=== PATIENT | male | born 1985 | race Caucasian/White ===

== ENCOUNTER 2017-02-22 15:45 | Emergency (ER) | payer OTHER ==
[~2017-02-22] VITALS: Ht 175.3 cm; Wt 86.6 kg
[2017-02-22 15:51] VITALS: TEMP 36.8; Ht 175.3 cm; Wt 86.6 kg
[2017-02-22] MEDS ORDERED: ACETAMINOPHEN 500 MG TAB PO STA (16:32)
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
[2017-02-22] MEDS ORDERED: DIPHTHERIA/TETANUS/PERTUSSIS 0.5 ML SYR/VIAL IM. ONE (16:45)
[2017-02-22] MEDS ORDERED: ASPI1TAB4 PO (17:04)
[2017-02-22] MEDS ORDERED: ASPI-390 PO (17:04)
--- NOTE | 2017-02-22 17:32 | DIAGNOSTIC IMAGING REPORT ---
CT SCAN OF THE BRAIN WITHOUT IV CONTRAST CLINICAL HISTORY: Fall. Head injury. COMPARISON STUDY: CT of the brain dated 04/15/2009. TECHNIQUE: Unenhanced axial CT scan of the brain is performed from the vertex to the skull base. A dose lowering technique was utilized adhering to the principles of ALARA. CT DOSE: 833.35 mGy.cm FINDINGS: Brain parenchyma: The brain parenchyma is normal in appearance. There is no hemorrhage, mass effect, or evidence of acute territorial ischemia by CT criteria. Diaz-white matter is preserved. No extra-axial fluid collection is seen. Ventricles, sulci, cisterns: Normal in configuration. Intracranial vasculature: The visualized intracranial vasculature at the skull base is normal in appearance. Calvarium: There is no depressed calvarial fracture. Sinuses and mastoids: Mild mucosal thickening is seen in the right maxillary antrum. The remaining visualized paranasal sinuses are clear. The mastoid air cells are well pneumatized. Orbits: The bony orbits are grossly intact. IMPRESSION: No acute intracranial abnormality. Electronically signed by: Fran Douglas M.D. 02/22/2017 5:31 PM Dictated Date/Time: 02/22/2017 5:29 PM
--- NOTE | 2017-02-22 17:37 | DIAGNOSTIC IMAGING REPORT ---
CT SCAN OF THE FACIAL BONES WITHOUT IV CONTRAST CLINICAL HISTORY: Fall. Facial pain. COMPARISON STUDY: CT of the brain performed concurrently on 02/22/2017. TECHNIQUE: High-resolution CT scan of the facial bones is performed. Images are reviewed in the axial, sagittal, and coronal planes. IV contrast was not administered for this examination. A dose lowering technique was utilized adhering to the principles of ALARA. CT DOSE: Reported separately under the concurrently performed CT scan of the brain. FINDINGS: The skeletal structures are well mineralized. There is a minimally depressed fracture of the left nasal bone. Nondistracted fracture extends to the anterior aspect of the right nasal bone. The bony nasal septum appears intact noting rightward deviation. No additional facial bone fracture is seen. The bony orbits are intact and the orbital contents are within normal limits. The zygomatic arches and pterygoid plates are preserved. The maxilla and mandible are intact. There are no layering blood products within the paranasal sinuses. There is mild mucosal thickening within the maxillary antra. The remaining paranasal sinuses are clear. The mastoid air cells are well pneumatized. The visualized calvarium and upper cervical spine are maintained. Partially imaged brain parenchyma is within normal limits. There is a large dental reinaldo within the left most posterior mandibular molar. There is a large periapical lucency involving this tooth. There is left premolar soft tissue contusion. IMPRESSION: 1. There is a minimally depressed fracture of the left nasal bone. Fracture extends to the anterior aspect of the right nasal bone. 2. No additional facial bone fracture is seen. The bony orbits are intact. 3. There is a large dental reinaldo involving the most posterior left mandibular molar with a large associated periapical lucency. Follow-up with dentistry is recommended. Electronically signed by: Fran Douglas M.D. 02/22/2017 5:36 PM Dictated Date/Time: 02/22/2017 5:29 PM
[2017-02-22 17:53] VITALS: BP 126/73; PULSE 92; O2SAT 97
[2017-02-22] MEDS ORDERED: PENI-82 PO (18:08)
[2017-02-22] MEDS ORDERED: TRAM-10 PO (18:08)
[2017-02-22] MEDS ORDERED: TRAMADOL HCL 50 MG HOME PACK PO ONE (18:15)
[2017-02-22] MEDS ORDERED: PENICILLIN HOME PACK 500MG (4 DOSES)BTL PO ONE (18:15)
== END 2017-02-22 18:21 | disposition home or self-care (01) ==
LOC: C.EDB 15:46 → C.EDA 18:21
DX: S02.2XXA Fracture of nasal bones, initial encounter for closed fracture (principal); S00.83XA Contusion of other part of head, initial encounter; W19.XXXA Unspecified fall, initial encounter; Y92.89 Other specified places as the place of occurrence of the external cause; F17.210 Nicotine dependence, cigarettes, uncomplicated